=== PATIENT | male | born 1990 | race Caucasian/White ===

== ENCOUNTER → 2025-06-03 | Outpatient (CLI) | payer OTHER, SELFPAY ==
--- NOTE | 2025-06-03 08:42 | US_ITS ---
PROCEDURE: EXT NON VASC LIMITED/SOFT TISS 06/03/2025 REASON FOR EXAM: RIGHT SHOULDER MASS TECHNIQUE: Procedure Code: [id number] Modality: US Procedure: EXT NON VASC LIMITED/SOFT TISS COMPARISON: None. FINDINGS: There is a 5.1 x 4.9 x 2.4 cm right shoulder mass isoechoic to the surrounding subcutaneous fat. US/Ext Non Vasc Limited/Soft Tiss IMPRESSION: Appearance consistent with a lipoma. Reading Location: [id number]
== END | disposition home or self-care (01) ==
PROVIDERS: Referring Provider Surgery Plastic and Reconstructive Surgery; Visit Provider Surgery Plastic and Reconstructive Surgery
DX: R22.31 Localized swelling, mass and lump, right upper limb (principal)
CPT/HCPCS: 76882

== ENCOUNTER 2025-07-13 05:31 | Day surgery (SDC) | payer OTHER, SELFPAY ==
[2025-07-13] VITALS (9 sets, daily range): BP systolic 107–124; BP diastolic 46–73; PULSE 60–79; RESP 16; TEMP 36.4–36.6; O2SAT 95–100; BMI 22.9
[2025-07-13] MEDS: Lactated Ringers 1,000 ML 15 ML IV (06:17)
--- NOTE | 2025-07-13 06:41 | PCM.PRE.AN2 ---
ASA Classification* ASA Classification ASA Classification: 2 Assessment & Plan Anesthesia* Anesthesia Assessment Anesthesia Assessment: Discussed sedation and/or anesthesia options, risks, benefits, and alternatives with patient/parents/legal guardian/POA. Questions invited. The patient/parents/legal guardian/POA seems to understand and agrees to proceed with anesthesia plan. Reviewed the physical assessment, medical history, allergy history and patient home medications list prior to surgery/procedure/anesthetic and documented any changes. Performed airway and anesthesia risk assessments. Anesthesia Type Anesthesia Type: MAC Anesthesia Focused Assessment* Temperature: 97.9 F Pulse Rate: 70 Blood Pressure: 122/73 Respiratory Rate: 16 Pulse Ox: 99 Airway Assessment Mouth opens: >3 cm Mallampati Score: II Labs Anesthesia Preop lab: CBC CHEMISTRY COAG Pre-Assessment Diagnosis/Proposed Procedure Planned Operative Procedure(s): EXCISION OF LIPOMA RIGHT SHOULDER Anesthesia History Anesthesia History - [facility]: Anesthesia History - [facility] Hx Hospitalization No 07/08/25 09:56 Any Problems With Anesthesia No 07/08/25 09:56 Cholinesterase deficiency No 07/08/25 09:56 You/Your Family Experience Yes: AUNT 07/08/25 09:56 fever (hyperthermia) with Relationship Recent Exposure to Contagious No 07/13/25 06:10 Disease Does patient have nerve No 07/08/25 09:56 stimulator Patient instructed to have device shut off --Does patient have Pacemaker No 07/13/25 06:10 or ICD? When Was Last Pacemaker Check QUESTION #4 FULL TEXT: You/Your Family Experience fever (hyperthermia) with Anesthesia Last Oral Intake Last Oral intake: Last Oral Intake NPO since 20:00 07/13/25 06:10 Meds taken in AM with sips of water? Meds patient instructed to take am of surgery PONV PONV - [facility]: PONV - [facility] Female No 07/08/25 09:56 HX of Motion Sickness No 07/08/25 09:56 HX of N/V After Surgery No 07/08/25 09:56 Non-Smoker Yes 07/08/25 09:56 Duration of Surgery greater No 07/08/25 09:56 than 60 minutes Number of Risk Factors 1 07/08/25 09:56 PONV Score Low Risk 07/08/25 09:56 Height & Weight Height & Weight: Anesthesia: Height & Weight Height 5 ft 10 in 07/13/25 06:10 Weight: 72.575 kg 07/13/25 06:10 Body Mass Index (BMI) 22.9 07/13/25 06:10 Respiratory Assessment Respiratory Assessment - [facility]: Respiratory Tract Infection Hx - [facility] Hx Respiratory Tract Infection No 07/08/25 09:56 STOP Sleep Apnea STOP Sleep Apnea - [facility]: STOP Sleep Apnea - [facility] Hx Hypertension No 07/08/25 09:56 Hx Sleep Apnea No 07/08/25 09:56 CPAP BIPAP Do you snore loudly (louder No 07/08/25 09:56 than talking or can be heard Do you often feel tired/ No 07/08/25 09:56 fatigued/ sleepy during daytime? Has anyone observed you stop No 07/08/25 09:56 breathing during sleep? STOP Results Negative 07/08/25 09:56 QUESTION #5 FULL TEXT : Do you snore loudly (louder than talking or can be heard through closed doors)? 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 Specify any problems Hx of Preganancy in last 3 N/A 07/08/25 09:56 Months Nurse Filling Out Transfusion [email or web address] 07/08/25 09:56 & Questions: Date: 07/08/25 07/08/25 09:56 Time: 09:59 07/08/25 09:56 Patient unable to answer at this time (ie. confused, unrespo /Reproduction History /Reproductive History - [facility]: /Reproductive Hx- [facility] Hx Now Gestational Age (in weeks): EDC: Hx Hx Para Hx Section SAB Active Medications Active Medications: Current Medications Generic Name Dose Route Start Last Admin Trade Name Freq PRN Reason Stop Dose Admin Cefazolin Sodium 2 gm/ Sodium 110 mls @ 200 mls/hr 07/13/25 07:35 Chloride IV 07/13/25 08:07 INTRAOP ONE Lactated Ringer's 1,000 mls @ 15 mls/hr 07/13/25 06:00 07/13/25 06:17 IV 15 mls/hr .Q48H TONY Administration PFSH Medical History Wears contact lenses Wears glasses Smoker Home Medications ?Medication ?Instructions ?Recorded ?Last Taken ?Type NK 05/21/25 Unknown History Allergy/AdvReac Type Severity Reaction Status Date / Time No Known Allergies Allergy Verified 07/13/25 06:10 Family History (Updated 07/08/25 @ 10:12 by Perez Appiah) Aunt Malignant hyperthermia Surgical History History of facial surgery H/O wrist surgery Social History (Updated 05/21/25 @ 13:46 by Chelo Lyon) Smoking Status: Current every day smoker tobacco type: e-cigarettes Review of Systems (Anesthesia) ROS Narrative System reviewed and no additional complaints, except as documented.
--- NOTE | 2025-07-13 07:17 | PCM.HP.STD ---
HPI - General HPI Narrative MARI BARR, is a 34 M who presents presenting today for right shoulder lipoma excision. 06/17: The patient is a 34-year-old male presenting with a mass on the right shoulder. The mass has been present for approximately seven years, initially appearing shortly after the patient fell off a roof, which resulted in injuries primarily on the left side. The mass is described as mobile and subcutaneous, measuring approximately 8 x 7 cm, and appears to be above the muscle. The patient denies any significant pain associated with the mass, although he occasionally experiences discomfort at night, possibly due to sleeping position. There is no history of trauma directly related to the mass, and the patient has not noticed any changes in size or symptoms over time. The patient has no significant medical history, denies any bleeding or clotting disorders, and does not take any daily medications except for supplements like magnesium. He has a history of vaping, which he is attempting to quit, as it may affect wound healing. The patient reports a family history of anesthesia-related issues, although he has undergone anesthesia previously without major complications He underwent ultrasound which confirmed the diagnosis of lipoma and assess the characteristics of the mass. Surgical excision is planned, with considerations for anesthesia given the patient's family history of anesthesia-related issues. The patient is advised to reduce vaping to enhance postoperative wound healing. He denies changes in his medical health since we his last visit. He denies fever, chills, URI, new rashes or other infection symptoms. He has cut down vaping to 12ml cartridge per day from previous 24ml. PFSH Medical History Lipoma of right shoulder Wears contact lenses Wears glasses Smoker Home Medications ?Medication ?Instructions ?Recorded ?Last Taken ?Type NK 05/21/25 Unknown History Allergy/AdvReac Type Severity Reaction Status Date / Time No Known Allergies Allergy Verified 07/13/25 06:10 Family History (Updated 07/08/25 @ 10:12 by Perez Appiah) Aunt Malignant hyperthermia Surgical History History of facial surgery H/O wrist surgery Social History (Updated 05/21/25 @ 13:46 by Chelo Lyon) Smoking Status: Current every day smoker tobacco type: e-cigarettes ROS ROS Narrative General: Denies fever, chills HEENT: Denies headaches, vision changes, sore throat Cardio: Denies chest pain, leg edema Pulmonary: Denies shortness of pain, cough, wheezing GI: Denies nausea, vomiting, diarrhea Vital Signs Vital Signs Vital Signs: 07/13/25 06:10 07/13/25 06:10 07/13/25 06:42 Temperature 97.9 F 97.9 F Temperature Source Temporal Pulse Rate 70 70 Respiratory Rate 16 16 Respiratory Pattern Normal Blood Pressure 122/73 H 122/73 H Blood Pressure Mean 89 Blood Pressure Source Monitor Blood Pressure Position Semi-Fowlers Blood Pressure Location Left Arm Pulse Ox 99 99 Oxygen Delivery Method Room Air Weight Weight: 160 lb Body Mass Index (BMI) 22.9 Physical Exam Narrative Afebrile/VSS. Lying in bed in no acute distress Alert and oriented. No facial asymmetry Moves all extremities spontaneously and smoothly, grossly normal strength Right shoulder 8cm x7cm, nontender mobile lipoma. No axillary lymphadenopathy Sensation intact to light touch Digits are well perfused, pink. Assessment & Plan Assessment/Plan (1) Lipoma of right shoulder: PLAN: Plan for MAC/local for excision with Dr. Shaw today.
--- NOTE | 2025-07-13 07:35 | LIP_PTH ---
PATIENT: MARI BARR LOC: [facility] [place] U#:[id number] AGE/SX: 34/M ROOM: RE07/13/[address]: Dr. Lopez Shaw MD : 1990 BED: DIS: 07/13/2025 SPEC #: [id number] RECD: 07/13/25 09:06 STATUS: JOEL THOMAS #: [id number] YULIANA: 07/13/25 07:[address]: Lopez Shaw DEPT: SURGICAL PATHOLOGY RECD BY: Yuri Marley ENTERED: 07/13/25 09:56 SP TYPE: LIPOMA OT DR: No Primary Care Phys Tissues: A - Soft tissues, NOS Procedures: Surgery Specimen Level III HEADER OPERATION: Excision right shoulder lipoma PRE-OP DIAGNOSIS: Lipoma of right shoulder TISSUE SUBMITTED: A- Right shoulder lipoma MICROSCOPIC DIAGNOSIS A. Soft tissue, shoulder, right, excision: * Lipoma MICROSCOPIC DESCRIPTION Slides are reviewed. GROSS DESCRIPTION A. Received in formalin labeled with the patient's name and date of . Designated as right shoulder lipoma is a 7.0 x 7.0 x 3.5 cm caruso-8 yellow lobulated soft tissue mass with a shaggy and somewhat disrupted capsule. The specimen is devoid of orientation. The external surfaces are inked black. Sectioning reveals caruso-yellow to pink, lobulated homogenous cut surfaces with patchy fibrosis and focal congestion. Electric Organ Assembler sections are submitted in 4 cassettes. MO 07/13/2025 CPT:11045
[2025-07-13] MEDS: Lactated Ringers 1,000 ML 1000 ML IV (07:49)
[2025-07-13] MEDS: Midazolam 2 MG/2 ML Syringe IV (07:50)
[2025-07-13] MEDS: Cefazolin 1 GM/5 ML Vial 2 GM IV (07:53)
[2025-07-13] MEDS: Lidocaine 1% (5 ml sdv) 5 ML Vial IV (07:53)
--- NOTE | 2025-07-13 08:03 | OP.PCM_ITS ---
Operative Report (Standard) Operative Information Date of Procedure: 07/13/25 Pre-Operative Diagnosis: Right shoulder mass Post-Operative Diagnosis: Same (likely lipoma) Surgery/Procedure Performed: 1) Excision of right shoulder mass/likely lipoma, [] x [] cm store shopper: Yes Automobile Brake Bonder: Dat Cassidy Tasks completed by corporate legal assistant: Opening & closing and Retracting Type of Anesthesia: Local MAC (20 cc of 50/50 mixture of 1% lidocaine with 1:200,000 epinephrine and 0.25% marcaine with 1:200,000 epinephrine ) RN Documented Start/Stop Times: Operation Date: 07/13/25 07:35 Case Time Into Pre-Op 07/13/25 05:55 Out of Pre-Op 07/13/25 07:47 Surgical Findings: Likely lipoma right shoulder Complications Complications: No
--- NOTE | 2025-07-13 08:03 | PCM.OPRPT ---
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 chassis: Yes Steamer Operator: Dat Cassidy Tasks completed by recruiting assistant: Opening & closing and Retracting Type of Anesthesia: Local MAC (27 cc of 50/50 mixture of 1% lidocaine with 1:200,000 epinephrine and 0.25% marcaine with 1:200,000 epinephrine ) RN Documented Start/Stop Times: Operation Date: 07/13/25 07:35 Case Time Into Pre-Op 07/13/25 05:55 Out of Pre-Op 07/13/25 07:47 Anesthesia Start 07/13/25 07:49 Into Room 07/13/25 07:49 Procedure Start 07/13/25 08:12 Procedure End 07/13/25 08:37 Procedure Start Time: 07:49 Procedure Stop Time: 08:37 Select all DRAINS/GRAFTS/IMPLANTS that apply: None Estimated Blood Loss: 5 cc Specimen collected: Yes Description of specimen(s) removed: Right shoulder mass Description of surgery: Indications: Patient is delightful 34-year-old male with a right shoulder mass presumably a lipoma based on ultrasound. Presents today for excision. I talked about the risks (including poor scarring and fluid collection/infection and damage to surrounding structures), benefits, and alternatives. We also talked about the recurrence of the mass (possible). He elected to proceed. Procedure details: Patient was correctly identified in preoperative holding and taken back to the operating room where he was sedated and given the above local. He was prepped and draped in sterile fashion and all proper timeouts were performed. 15 blade scalpel was used to make a direct incision over the mass and dissection was carefully taken down with tenotomy scissors just around the capsule of the mass. The mass was well-circumscribed. It was removed in 1 piece and measured 6 x 7 cm. It was within the subcutaneous tissues on top of the fascia. Hemostasis was obtained with Bovie electrocautery. The wound was irrigated with copious amounts normal saline and Irrisept. It was then closed in layers using 3-0 PDS for the deep Rosalina sutures and 4 plication sutures to destroy the space. 3-0 Vicryl sutures were used for deep dermal sutures followed by 3-0 Monocryl running subcuticular suture and Prineo tape. Patient tolerated the procedure well. He was awakened and taken the PACU in stable condition. Postoperative plan: No heavy lifting for 1 month. Follow-up in 1 week for wound check and to review pathology. Surgical Findings: Likely lipoma right shoulder Complications Complications: No
[2025-07-13] MEDS: dexMEDEtomidine 200 MCG/2 ML ML 20 MCG IV (08:25)
[2025-07-13] MEDS: Bupiv/Epi 0.25% 30 ML Vial (08:33)
[2025-07-13] MEDS: Lidocaine 1% /Epi 1:100 (20ml) 20 ML Vial (08:33)
--- NOTE | 2025-07-13 08:48 | PCM.POST.ANE ---
Anesthesia: Postop Eval I Current Vital Signs Temperature: 97.6 F Pulse Rate: 76 Blood Pressure: 124/57 Respiratory Rate: 16 Pulse Ox: 98 Oxygen Delivery Method: Room Air Assessment Airway patent: Yes Spontaneous unlabored respirations: Yes Mental status: Awake and Calm nausea: No Vomiting: No Anesthesia Complication: No Fluid Hydration Crystalloid volume administer (ml): 1,000 Total IV fluid infused: 1,000 Progress Note Anesthesia document: Postop Eval 1 completed: Yes
--- NOTE | 2025-07-13 11:46 | POSTOPAN2_ITS ---
Anesthesia Postop Eval I Sum Postop Eval Completion status Anesthesia document: Postop Eval 1 completed: Yes Anesthesia Postop Eval I Summary Anesthesia Postop Eval I Summary: Anesthesia Postop Eval I: Assessment Summary Airway patent Yes 07/13/25 08:48 RADIO COMMUNICATIONS SUPERINTENDENT.SKOBY Spontaneous unlabored Yes 07/13/25 08:48 RADIO COMMUNICATIONS SUPERINTENDENT.AB respirations Mental status Awake,Calm 07/13/25 08:48 RADIO COMMUNICATIONS SUPERINTENDENT.MEREDITHOBNisha nausea No 07/13/25 08:48 RADIO COMMUNICATIONS SUPERINTENDENT.MEREDITHOBNisha Vomiting No 07/13/25 08:48 RADIO COMMUNICATIONS SUPERINTENDENT.MEREDITHOBNisha Anesthesia Postop Eval I: Fluid Summary Crystalloid volume administer 1,000 07/13/25 08:48 RADIO COMMUNICATIONS SUPERINTENDENT.SKOBY (ml) Colloids volume administered ( ml) Blood Product volume administered (ml) Total IV fluid infused 1,000 07/13/25 08:48 RADIO COMMUNICATIONS SUPERINTENDENT.AB Anesthesia Postop Eval I: Summary Notes Anesthesia Complication No 07/13/25 08:48 RADIO COMMUNICATIONS SUPERINTENDENT.AB Anesthesia Complication Comment: Post-operative progress note Anesthesia: Postop Eval II Evaluation Mental status: Awake Pain Level: 0 nausea: No Vomiting: No
--- NOTE | 2025-07-13 11:46 | PCM.POSTANE2 ---
Anesthesia Postop Eval I Sum Postop Eval Completion status Anesthesia document: Postop Eval 1 completed: Yes Anesthesia Postop Eval I Summary Anesthesia Postop Eval I Summary: Anesthesia Postop Eval I: Assessment Summary Airway patent Yes 07/13/25 08:48 DECKHAND OYSTER DREDGE.SKOBY Spontaneous unlabored Yes 07/13/25 08:48 DECKHAND OYSTER DREDGE.AB respirations Mental status Awake,Calm 07/13/25 08:48 DECKHAND OYSTER DREDGE.MEREDITHOBNisha nausea No 07/13/25 08:48 DECKHAND OYSTER DREDGE.MEREDITHOBNisha Vomiting No 07/13/25 08:48 DECKHAND OYSTER DREDGE.MEREDITHOBNisha Anesthesia Postop Eval I: Fluid Summary Crystalloid volume administer 1,000 07/13/25 08:48 DECKHAND OYSTER DREDGE.SKOBY (ml) Colloids volume administered ( ml) Blood Product volume administered (ml) Total IV fluid infused 1,000 07/13/25 08:48 DECKHAND OYSTER DREDGE.AB Anesthesia Postop Eval I: Summary Notes Anesthesia Complication No 07/13/25 08:48 DECKHAND OYSTER DREDGE.AB Anesthesia Complication Comment: Post-operative progress note Anesthesia: Postop Eval II Evaluation Mental status: Awake Pain Level: 0 nausea: No Vomiting: No
== END 2025-07-13 10:01 | disposition home or self-care (01) ==
LOC: SDC 05:41 → AC 05:41
PROVIDERS: Referring Provider Surgery Plastic and Reconstructive Surgery; Visit Provider Surgery Plastic and Reconstructive Surgery
PROC: (CPT 11406; principal; 2025-07-13 07:20)
DX: D17.21 Benign lipomatous neoplasm of skin and subcutaneous tissue of right arm (principal); F17.290 Nicotine dependence, other tobacco product, uncomplicated
CPT/HCPCS: 11406; 00400; 88304; J2405